=== PATIENT | female | born 1990 | race Caucasian/White ===

== ENCOUNTER → 2017-02-07 | Day surgery (SDC) | payer OTHER ==
[2017-02-07] VITALS (9 sets, daily range): BP systolic 118–131; BP diastolic 57–86; PULSE 68–123; RESP 14–17; O2SAT 93–98
[~2017-02-07] VITALS: Ht 167.6 cm; Wt 108.4 kg
[~2017-02-07] MED LIST: Bupivacaine-MPF 0.5% W/EPI 30 mL Inj INFILTRATE ONE; CeFAZolin 2 Gm/50 mL D5W Duplex Bag IV ONE; CeFAZolin Inj 2 GM in IV Premix 1 EACH IV ONE; Dexamethasone 4 mg/mL Inj IVPUSH PRN; Dexamethasone 4 mg/mL Inj ONE; EPHEDrine Sulfate 50 mg/mL Inj IVPUSH PRN; HYDR-656 PO; IMI100 PO; Lactated Ringer's 1,000 ML IV ONE; Lactated Ringer's 1,000 ML IV SCH; Lactated Ringer's 500 ML IV PRN; Lidocaine 2%-Epi 1:100,000 20 mL Inj NERVEBLOCK ONE; OXYC-465 PO; Ondansetron 2 mg/mL 2 mL Inj IVPUSH PRN; Ondansetron 2 mg/mL 2 mL Inj ONE; Phenylephrine 10,000 mCg/mL Inj IVPUSH PRN; Propofol 10,000 mCg/mL 20 mL Inj ONE; fentaNYL-PF 50 mCg/mL 2 mL Inj IVPUSH PRN; fentaNYL-PF 50 mCg/mL 2 mL Inj ONE; mirena INTRAUTERI
--- NOTE | 2017-02-07 11:10 | PCM.HPANE ---
Patient Data Date of Service: Feb 07, 2017 Surgeon Admitting Provider: Attending Provider:Berta España DPM Primary Care Physician:Princess Velazquez Other Provider:Arturo Nation Anesthesia Reason for Visit Left Foot Pronation, Posterior Tibial Tendon Dysfu Ht/WT & BMI Height (Feet): 5 Height (Inches): 6.00 Weight (Kilograms): 108.410 Body Mass Index 38.00 Allergies Coded Allergies: metoclopramide (Verified Allergy, Unknown, caused her to "freak out", 02/06) prochlorperazine (Verified Allergy, Unknown, body contortions, 02/06/17) Past Anesthesia History Anesthesia History: Denies:: Abnormal Airway, Anesthesia Reactions ("loopy when I wake up"), Difficult Intubation, Fam Anesthesia Reaction (dad take "forever" to wake up), Fam Malignant Hypertherm, Malignant Hyperthermia Diabetes History Hx Diabetes?: No MRSA MRSA: No Medications Hypertension Medication: No Home Meds Incl Beta Vonnie: No Reported Medications Sumatriptan (Imitrex)100 Mg [id number] Mg PO Q2H PRN migraines MRx1/NTE 200mg/24hr 01/31/17 oxyCODONE-Acetaminophen 7.5-325 mg 1 Each Tablet1 Tab PO Q4H PRN For Pain Ref 0 01/31/17 [mirena] 20mcg/24hr No Conflict Check20 Mcg INTRAUTERI DAILY 01/31/17 hydrOXYzine Hcl (HydrOXYzine Hcl)25 Mg [id number] Mg PO TID PRN For Shivering Ref 0 01/31/17 Discontinued Reported Medications [mirena] 20mcg/24hr No Conflict Check20 Mcg INTRAUTERI DAILY 05/02/16 Albuterol HFA (Proair HFA)8.5 Gm Hfa.aer.ad2 Puffs INHALATION Q4H PRN For Shortness of Breath #1 INHALER 05/02/16 History History of ENT Problems?: Yes HEENT History: Positive for:: Cataracts (congenital cataract- right) Glaucoma (hx of with surgical corrections/stents) Denies:: Abnormal Airway Difficult Intubation Dysphagia Hearing Problem Sinus Problem TMJ Denture Type: None Teeth Condition: Within Normal Limits Hx of Heart Problems?: No Cardiovascular History: Denies:: AICD Abdominal Aortic Aneurism Atrial Fibrillation Cardiac Surgery Chest Pain Congestive Heart Failure Edema Heart Murmur Hypertension Irregular Heartbeat Pacemaker Hx of Respiratory Problem?: No Respiratory History: Denies:: Asthma COPD Emphysema Oxygen Administration Pneumonia Tuberculosis Use of C-PAP Machine Hx Neurologic Problems?: Yes Neurological History: Positive for:: Headaches (related to eye pressure, light sensitivity) Denies:: Alzheimer's Disease CVA Dementia Dizziness Multiple Sclerosis Parkinson's Disease Seizures TIA Hx of GI Problems?: Yes Gastrointestinal History: Positive for:: Gall Bladder Disease (s/p cholecystectomy) Hx of Problems?: Yes Genitourinary History: Positive for:: Kidney Stones (past hx of kidney stones) Urinary Tract Infection (prior hx of infections - none currently) Female Hx: Denies:: Currently Problems with Breasts? Skin History: Denies:: History Skin Disorders? Pressure Ulcers Hx Musculoskeletal Problems?: Yes Musculoskeletal History: Positive for:: Musculoskeletal Trauma (left flat foot current admission problem) Denies:: Back Injury Degenerative Joint Fibromyalgia Joint Replacement Osteoarthritis Rheumatoid Arthritis Systemic Lupus Hx of Psycho/Social Problems?: No Psycho Social History: Denies:: Anxiety Hx Depression Hx Surgeries?: Yes (multiple eye, kidney stones) Hx Any Other Health Problems?: Yes Other History: Denies:: Cancer Thyroid Disease History Blood Transfusions: Denies:: Blood Transfusions Hx Diabetes: No Hx Alcohol Use: NoHx Substance Use: No Smoking Status: Former Smoker Have You Smoked inLast 12 mo: Yes (vapes- 3 hits 6x daily, just quit cigarettes - 1-2 cig daily) Stop/Bang Treated for Sleep Apnea?: No Do You Have a CPAP Machine?: No S-Snoring: Do You Snore Loudly: No T-Tired: feel tired, fatigued: Yes O-Obsered: Observed not breath: No P-Blood Pressure: treated: No B- Body Mass Index > 35 kg/m2: Yes A- Age over 50: No N- Neck Large Circumference: Yes G- Gender Male: No DONAVON Risk Assessment: High Risk, =/>3 Yes DONAVON Category 2: Yes Risk Assessment Category Category 1A: Patient has history of documented sleep apnea, and HAS NOT received any narcotic, sedative or anesthesia administration during this stay. Category 1B: Patient has history of documented sleep apnea, and HAS received any narcotic , sedative or anesthesia administration during this stay Category 2: Patient has SUSPECTED Obstructive Sleep Apnea, and HAS received any narcotic , sedative or anesthesia administration during this stay. Category 3: Patient has SUSPECTED Obstructive Sleep Apnea and HAS NOT received narcotic, sedative or anesthesia administration during this stay. Category 4: Outpatient in Procedural Areas with known sleep apnea or who screen positive for High Risk via the STOP/BANG questionnaire. Exam Exam Vital Signs Vital Signs Date Time Temp Pulse Resp B/P Pulse Ox O2 Delivery O2 Flow Rate FiO2 02/07/17 10:49 36.6 86 16 120/76 94 Room Air General Appearance: Alert, Oriented X3, Cooperative, No Acute Distress HEENT/AIRWAY: MP 1 Lungs: Clear to Auscultation Heart: Regular Rate/Rhythm, No Murmurs/Rubs/Gallops Meds/Labs/Diagnostics Admission Meds Current Medications Lactated Ringer's (Lr) 1,000 ml @ ud STK-MED ONCE IV Last administered on 02/07t 10:54; Start 02/07/17 at 10:54; Stop 02/07/17 at 10:55; Status DC Plan Impression Patient chart reviewed, patient interviewed and anesthestic plan with risks, benefits, and alternatives discussed, and informed consent obtained. NPO per Anesth. Guidelines: Yes ASA Physical Status: ASA2 Mod Systemic Disease Anesthetic Plan: GA Bene/Risks/Altern/Consents: Yes HP Complete Prior to Induction: Yes Campbell Hankins DO Feb 07, 2017 11:10
--- NOTE | 2017-02-07 14:59 | PCM.PODPO ---
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 Left foot pronation with heel valgus. 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 Left foot pronation with heel valgus. Procedure Left calcaneal slide osteotomy. Left foot excision of accessory navicular and repair of Posterior tibial tendon. Surgeon Surgeon: Berta España DPM Assistants: None Indication for Procedure Pain and instability in left foot. Findings Mobile encapsulated accessory navicular. Good correction without need for gastroc recession. Details of Procedure The patient was identified in the preoperative holding area and brought back to the operating room. She was placed on the operating table in supine position. The timeout protocol was completed and the patient's general anesthesia initiated. The left foot was prepped and draped in usual aseptic manner and elevated on foam bump. An ankle block was administered using lidocaine 2% with epinephrine. The first incision was made on the lateral aspect of the left heel. The subcutaneous soft tissue was retracted. 2 elevators were placed on the proximal aspect of the calcaneus anterior to the Achilles tendon and distal to the origin of the plantar fascia. An osteotomy was made with a bone saw from lateral to medial in the usual diagonal fashion between the 2 landmarks. It was completed with osteotomes and mallet to protect medial structures. The posterior heel fragment was translated medially 6 mm and fixated from the plantar posterior aspect of the heel across the osteotomy with 6.5 mm cannulated partially threaded screws, 2 of them in parallel configuration. Fluoroscopic guidance was used along the way. No tourniquet was used. Bleeding vessels were cauterized as needed. The second incision was made on the medial aspect of the navicular tuberosity. It was deepened bluntly. An elevator was used to confirm that the accessory navicular was mobile, finding inflammatory tissue at the insertion of the posterior tibial tendon. The tendon itself appeared intact. Using an osteotome and mallet, a #15 scalpel and an elevator, the accessory navicular bone was systematically resected, leaving the distal portion of the posterior tibial tendon intact. A 3.5 mm metal anchor was used with two 0 FiberWire sutures attached to it to repair the insertion of the posterior tibial tendon to the medial wall of the navicular body. The repair was stable and the resulting foot configuration was no longer subluxing at the talonavicular joint. Overall, the resulting foot position was found to be satisfactory and no gastrocnemius recession was necessary. The deep wounds were closed with 3-0 Vicryl, the skin was closed with 3-0 Prolene. The foot was cleansed, the ankle block reinforced with 0.5% bupivacaine with epinephrine. A well-padded posterior splint was placed over the sterile dressing consisting of Carlos silk, normal saline moistened gauze, and dry sterile cast batting. The patient was weaned off of general anesthesia and taken to the recovery room with vital signs stable and the vascular status to the left foot intact. Grafts, Implants: Implants-See Implant Record Complications There were no periprocedural complications identified. Condition Stable Anesthetic Administered: GA Drains: None Catheters: None Output, Estimated Blood Loss: 20 (ml) Blood Admin during surgery: No Surgical Cast or Splint: Well-padded Short Leg Splint Surgical Specimen Removed: No Specimen sent to Pathology: No Post Operative Plan Nonweightbearing on the left foot. Use of crutches and knee scooter. Follow- up in one week. The dressing and splint are to remain clean, dry, intact until follow-up visit. Postop pain medication has been dispensed. The patient will be on aspirin 81 mg a day as a precautionary measure for DVT prophylaxis. Berta España DPM Feb 07, 2017 14:59
[2017-02-07] MEDS: HYDROmorphone 1 mg/mL Inj IVPUSH PRN ×2 (15:05→15:30)
--- NOTE | 2017-02-07 15:29 | PCM.ANEP1 ---
Post Anesthesia PACU Phase 1 Assessment Date of Service: Feb 07, 2017 Vital Signs Vital Signs Date Time Temp Pulse Resp B/P Pulse Ox O2 Delivery O2 Flow Rate FiO2 02/07/17 15:10 83 17 118/81 97 Nasal Cannula 2 02/07/17 14:55 96 15 122/78 96 Nasal Cannula 2 02/07/17 14:50 123 17 123/81 93 Room Air 02/07/17 14:45 95 15 126/80 94 Room Air 02/07/17 14:40 36.9 95 14 131/86 94 Room Air 02/07/17 10:49 36.6 86 16 120/76 94 Room Air Anesthetic Administered: GA Level of Alertness: Awake, talking Pain: Yes Nausea or Vomiting: No CV Function & Hydration Stable: Yes Airway Device: Oxygen Delivery: Room Air Lungs: Clear to Auscultation PACU Phase 2 Assessment Complications: No Follow up Care: No Patient Instructions Provided: Yes Campbell Hankins DO Feb 07, 2017 15:28
== END | disposition home or self-care (01) ==
LOC: SAS 10:25
PROVIDERS: ATTEND Podiatrist
DX: M21.6X2 Other acquired deformities of left foot (principal); R51 Headache; Z79.899 Other long term (current) drug therapy; Z88.8 Allergy status to other drugs, medicaments and biological substances; Z87.891 Personal history of nicotine dependence
CPT/HCPCS: 27687; 27690; 28300; C1713; J0690; J1100; J1170; J2250; J2405; J3010; J7120